=== PATIENT | female | born 1975 | race Caucasian/White ===

== ENCOUNTER 2023-07-07 10:20 | Outpatient (CLI) | payer OTHER, SELFPAY ==
--- NOTE | ~2023-07-07 | MR_ITS ---
EXAMINATION: MR knee RT wo con DATE: 07/07/2023 11:03 INDICATION: Right knee pain TECHNIQUE: Magnetic resonance imaging (MRI) of the knee was performed without intravenous contrast. S equences included axial PD-weighted FS FSE, coronal PD-weighted FSE and PD-weighted FS FSE, sagittal PD-weighted FSE, and sagittal T2-weighted FS FSE. COMPARISON: None. FINDINGS: Medial compartment: Complex tear of the posterior horn and body with a oblique undersurface tear at the body, medial meni scal extrusion, with a medially displaced meniscal flap and a parrot beak type tear of the posterior horn, with meniscal tissue displaced towards the intercondylar notch. Moderate diffuse thinning of ca rtilage. Mild osteophytosis. Lateral compartment: Focal apical tear and fraying of the undersurface of the meniscal body. Moderate diffuse cartilage th inning. Mild osteophytosis. Patellofemoral compartment: Full-thickness cartilage loss over the median ridge. Mild osteophytosis. Intact retinacula. Ligaments and tendons: Abnormal signal superficial and deep to the MCL. The ACL, PCL, and LCL are intact. Remaining flexor a nd extensor tendons are intact. Fluid: Large volume joint fluid. Moderate Friedman's cyst containing a loose body. Osseous/other: Focal marrow edema in the posteromedial aspect of the lateral tibial plateau. IMPRESSION: Complex tear of the posterior horn and body of the medial meniscus with displaced meniscal flaps into the medial gutter and intercondylar notch. Focal apical tear of the body, lateral meniscus. Partial-thickness MCL tear. Large knee joint effusion. Friedman's cyst with loose bodies. Focal marrow edema in the posterior medial aspect of the lateral tibial plateau. Moderate tricompartmental osteoarthritis Reviewed, dictated and finalized at location K. [employer] IMPRESSION: Complex tear of the posterior horn and body of the medial meniscus with displac ed meniscal flaps into the medial gutter and intercondylar notch. Focal apical tear of the body, lateral meniscus. Partial-thickness MCL tear. Large knee joint effusion. Friedman's cyst with loose bodies. Focal marrow edema in the posterior medial aspect of the lateral tibial plateau . Moderate tricompartmental osteoarthritis
== END 2023-07-07 10:21 ==
LOC: MICIMG 10:23
DX: M17.11 Unilateral primary osteoarthritis, right knee (principal); T14.90XA Injury, unspecified, initial encounter; S83.231A Complex tear of medial meniscus, current injury, right knee, initial encounter; X58.XXXA Exposure to other specified factors, initial encounter; M23.41 Loose body in knee, right knee
CPT/HCPCS: 73721